=== PATIENT | female | born 1985 | race Caucasian/White ===

== ENCOUNTER 2023-08-28 17:06 | Inpatient (IN) | payer SELFPAY ==
[~2023-08-28] VITALS: Ht 160 cm; Wt 73.5 kg
[2023-08-28 17:39] VITALS: BP 117/72
[2023-08-28] MEDS ORDERED: SODIUM CHLORIDE 0.9% 1,000 ML IV SCH (17:50)
[2023-08-28] MEDS ORDERED: HYDROmorphONE Hydrochloride 0.5 MG/0.5 ML SYRINGE IV ONE (17:50)
[2023-08-28] MEDS ORDERED: Ondansetron Hydrochloride 4 MG/2 ML VIAL IV ONE (17:50)
[2023-08-28 18:15] LABS: BILIRUBIN Negative (Negative); BLOOD Negative (Negative); CLARITY Clear (Clear); COLOR Yellow (Yellow); GLUCOSE Negative (Negative); KETONE Trace (Negative); LEUKO ESTERASE Negative (Negative); NITRITE Negative (Negative); PH 7.5 (4.5-8.0)
[2023-08-28 18:46] LABS: BASO % 0.2 % (0.0-1.0); EOS % 0.3 % (1.0-4.0); HEMATOCRIT 40.7 % (37.0-47.0); LYMPH # 1.8 10*3/uL (1.3-4.4); MEAN CELL VOLUME 92.3 fl (81.0-99.0); MEAN CORPUSCULAR HGB 31.5 pg (27.0-31.0); MEAN CORPUSCULAR HGB CONC 34.2 g/dl (33.0-37.0); MEAN PLATELET VOLUME 11.5 fl (9.6-12.3); MONO % 7.5 % (3.0-9.0); NEUT # 10.7 10*3/uL (2.3-7.9); NEUT % 78.7 % (47.0-73.0); PLATELET COUNT AUTOMATED 195 10*3/uL (130-400); RED BLOOD COUNT 4.41 10*6/uL (4.10-5.10); RED CELL DISTRI WIDTH 11.4 % (0-14.5); WHITE BLOOD COUNT 13.6 10*3/uL (4.8-10.8)
[2023-08-28 18:58] LABS: RBC 0-2 rbc/hpf (0-2)
[2023-08-28 18:59] LABS: BACTERIA TRACE; WBC 0-2 wbc/hpf (0-5)
[2023-08-28 19:23] LABS: BUN 8 mg/dl (9-23); CHLORIDE 104 mmol/L (98-107); LIPASE 35 U/L (12-53); POTASSIUM 4.1 mmol/L (3.4-5.1)
[2023-08-28] MEDS ORDERED: IOHEXOL 300 MG/ML 100 ML VIAL IV ONE (19:25)
[2023-08-28] MEDS ORDERED: Piperacillin Sodium/Tazobact 100 ML IV ONE (22:35)
[2023-08-28] MEDS ORDERED: Ondansetron Hydrochloride 4 MG/2 ML VIAL IV PRN (22:50)
[2023-08-28] MEDS ORDERED: MORPHINE Sulfate 2 MG/ML SYR IV PRN (22:50)
[2023-08-28] MEDS ORDERED: SODIUM CHLORIDE 0.9% 1,000 ML IV ONE (22:55)
[2023-08-28] MEDS ORDERED: ACETAMINOPHEN 325 MG TAB PO ONE (23:45)
[2023-08-29] VITALS (7 sets, daily range): BP systolic 94–123; BP diastolic 57–69
[2023-08-29] MEDS ORDERED: Piperacillin Sodium/Tazobact 50 ML IV SCH (06:00)
[2023-08-29 06:09] LABS: BASO % 0.3 % (0.0-1.0); EOS # 0.1 10*3/uL (0.0-0.4); EOS % 0.5 % (1.0-4.0); HEMATOCRIT 38.4 % (37.0-47.0); LYMPH # 1.7 10*3/uL (1.3-4.4); LYMPH % 13.8 % (27.0-41.0); MEAN CELL VOLUME 93.7 fl (81.0-99.0); MEAN CORPUSCULAR HGB 31.2 pg (27.0-31.0); MEAN CORPUSCULAR HGB CONC 33.3 g/dl (33.0-37.0); MEAN PLATELET VOLUME 11.3 fl (9.6-12.3); MONO % 8.3 % (3.0-9.0); NEUT # 9.2 10*3/uL (2.3-7.9); NEUT % 76.8 % (47.0-73.0); PLATELET COUNT AUTOMATED 173 10*3/uL (130-400); RED CELL DISTRI WIDTH 11.5 % (0-14.5); WHITE BLOOD COUNT 11.9 10*3/uL (4.8-10.8)
[2023-08-29 06:52] LABS: ALKALINE PHOSPHATASE 55 U/L (46-116); CHLORIDE 110 mmol/L (98-107); SGPT/ALT 16 U/L (5-49); TOTAL PROTEIN 6.1 gm/dL (6.0-8.0)
[2023-08-29 07:03] LABS: BUN < 5 mg/dl (9-23)
[2023-08-29] MEDS ORDERED: BUPIVACAINE 0.5% 50 ML VIAL ONE ×2 (10:10→10:13)
[2023-08-29] MEDS ORDERED: LIDOCAINE HCL/EPINEPHRINE 50 ML VIAL ONE ×2 (10:11→10:13)
[2023-08-29] MEDS ORDERED: SODIUM CHLORIDE 0.9% 1,000 ML IV SCH (14:20)
[2023-08-30 01:00] VITALS: BP 134/65
[2023-08-30] MEDS ORDERED: METFORMIN XR500 MG PO (01:14)
[2023-08-30 04:58] LABS: BUN 6 mg/dl (9-23); CHLORIDE 111 mmol/L (98-107); POTASSIUM 4.7 mmol/L (3.4-5.1)
[2023-08-30 06:20] LABS: BASO # 0.1 10*3/uL (0.0-0.1); BASO % 0.6 % (0.0-1.0); EOS # 0.1 10*3/uL (0.0-0.4); EOS % 1.7 % (1.0-4.0); HEMATOCRIT 39.3 % (37.0-47.0); LYMPH # 1.9 10*3/uL (1.3-4.4); MEAN CELL VOLUME 95.4 fl (81.0-99.0); MEAN CORPUSCULAR HGB 31.3 pg (27.0-31.0); MEAN CORPUSCULAR HGB CONC 32.8 g/dl (33.0-37.0); MONO # 0.7 10*3/uL (0.1-1.0); MONO % 8.5 % (3.0-9.0); NEUT # 5.4 10*3/uL (2.3-7.9); PLATELET COUNT AUTOMATED 161 10*3/uL (130-400); RED BLOOD COUNT 4.12 10*6/uL (4.10-5.10); RED CELL DISTRI WIDTH 11.5 % (0-14.5); WHITE BLOOD COUNT 8.1 10*3/uL (4.8-10.8)
[2023-08-30 08:00] VITALS: BP 121/77
[2023-08-30 12:00] VITALS: BP 123/71
[2023-08-30 16:00] VITALS: BP 121/68
[2023-08-30 20:00] VITALS: BP 122/82
[2023-08-31] VITALS: BP 105/62
[2023-08-31 08:00] VITALS: BP 118/75
[2023-08-31] MEDS ORDERED: METRONIDAZOLE500 M1 PO (11:13)
[2023-08-31] MEDS ORDERED: CIPRO500 MG PO (11:13)
[2023-08-31 12:00] VITALS: BP 118/75
== END 2023-08-31 12:20 | disposition home or self-care (01) | DRG 872 ==
LOC: ED 17:06 → 4E 22:33 → EDHOLD 22:33 → 4E 08-30 00:16
PROVIDERS: Nurse Practitioner Family; Student in an Organized Health Care Education/Training Program; ADMIT Internal Medicine; ATTEND Internal Medicine
DX: A41.9 Sepsis, unspecified organism (principal); K57.32 Diverticulitis of large intestine without perforation or abscess without bleeding; E44.0 Moderate protein-calorie malnutrition; E87.1 Hypo-osmolality and hyponatremia; Z96.662 Presence of left artificial ankle joint; E55.9 Vitamin D deficiency, unspecified; E28.2 Polycystic ovarian syndrome; Z90.710 Acquired absence of both cervix and uterus; Z83.3 Family history of diabetes mellitus; Z82.49 Family history of ischemic heart disease and other diseases of the circulatory system; Z68.28 Body mass index [BMI] 28.0-28.9, adult

== ENCOUNTER → 2024-10-17 | Outpatient (CLI) | payer BC ==
[~2024-10-17] MED LIST: CIPRO500 MG PO; GADOTERATE MEGLUMINE 7.5 MMOL/15 ML VIAL IV ONE; METFORMIN XR500 MG PO; METRONIDAZOLE500 M1 PO
== END | disposition home or self-care (01) ==
LOC: MRI 09-30 10:00
PROVIDERS: ATTEND Nurse Practitioner Family
DX: Q04.8 Other specified congenital malformations of brain (principal); R42 Dizziness and giddiness; G43.109 Migraine with aura, not intractable, without status migrainosus; Z84.89 Family history of other specified conditions